=== PATIENT | female | born 1985 | race Two or more races ===

== ENCOUNTER 2025-03-05 02:54 | Inpatient (IN) | payer OTHER ==
[~2025-03-05] VITALS: Ht 160 cm; Wt 74.5 kg
[2025-03-05 04:00] LABS: PLATELET COUNT (AUTO) 361 K/uL (150-450); RED BLOOD CELL COUNT(AUTO) 4.71 MIL/uL (4.00-5.20); RED CELL DISTRIBUTION WIDTH 15.7 % (11.5-14.5); WHITE BLOOD COUNT (AUTO) 7.5 K/uL (4.5-11.0)
[2025-03-05 04:09] LABS: CALCIUM, TOTAL 9.1 mg/dL (8.8-10.5); CREATININE 0.58 mg/dL (0.60-1.30); GLOMERULAR FILTR. RATE CALC > 60 mL/min (>60); GLUCOSE,RANDOM 94 mg/dL (70-110); SODIUM SERUM 141 mmol/L (136-145); UREA NITROGEN, BLOOD 9 mg/dL (7-18)
[2025-03-05 04:13] LABS: ALCOHOL, BLOOD (SERUM) < 3 mg/dL (0-10)
[2025-03-05 04:16] LABS: ASPARTATE AMINOTRANSFERASE 18 U/L (15-37); TOTAL PROTEIN, SERUM 7.4 g/dL (6.4-8.2)
[2025-03-05] MEDS: SODIUM CHLORIDE 0.9% 1,000 ML IV ONE ×2 (05:23→08:31)
[2025-03-05] MEDS: ONDANSETRON HCL 4 MG/2 ML VIAL IVP ONE (05:24)
[2025-03-05] MEDS ORDERED: ONDANSETRON HCL 4 MG/2 ML VIAL IVP PRN (08:15)
[2025-03-05] MEDS ORDERED: MAGNESIUM HYDROXIDE SUSPENSION 30 ML UDCUP PO PRN (08:15)
[2025-03-05 09:00] VITALS: BP 130/84; PULSE 72; RESP 18; TEMP 97.3; O2SAT 100
[2025-03-05] MEDS: FAMOTIDINE 20 MG TABLET PO SCH (09:39)
[2025-03-05] MEDS: ACETAMINOPHEN 325 MG TABLET PO PRN (17:27)
[2025-03-05 20:11] VITALS: BP 111/71; PULSE 59; RESP 18; TEMP 97.5; O2SAT 99
[2025-03-06 04:26] LABS: APPEARANCE,URINE CLEAR (CLEAR); GLUCOSE, URINE (UA) NEGATIVE (NEGATIVE); LEUKOCYTE ESTERASE ,URINE NEGATIVE (NEGATIVE); NITRATE,URINE NEGATIVE (NEGATIVE); OCCULT BLOOD,URINE MODERATE (NEGATIVE); PH,URINE DRUG SCREEN 7.0 (5.0-8.0); SPECIFIC GRAVITIY, URINE 1.005 (1.003-1.030)
[2025-03-06 04:28] LABS: AMPHET/METH SCREEN,URINE NEGATIVE (NEGATIVE); BARBITURATE SCREEN, URINE NEGATIVE (NEGATIVE); CANNABINOID SCREEN,URINE NEGATIVE (NEGATIVE); COCAINE SCREEN,URINE NEGATIVE (NEGATIVE); METHADONE SCREEN, URINE NEGATIVE (NEGATIVE)
[2025-03-06 04:30] LABS: ALCOHOL, URINE DRUG SCREEN NEGATIVE (NEGATIVE); SQUAMOUS EPITHELIAL CELL,UR Few /LPF (None Seen)
[2025-03-06 08:42] VITALS: BP 104/73; PULSE 58; RESP 18; TEMP 98; O2SAT 97
[2025-03-06 20:00] VITALS: BP 106/75; PULSE 79; RESP 18; TEMP 98.1; O2SAT 98
[2025-03-07] MEDS: ZOLPIDEM TARTRATE 5 MG TABLET PO PRN (01:56)
[2025-03-07 03:33] VITALS: BP 104/69; PULSE 73; RESP 18; TEMP 97.3; O2SAT 99
[2025-03-07 15:28] VITALS: BP 95/59; PULSE 78; RESP 18; TEMP 97.7; O2SAT 96
== END 2025-03-07 20:00 | DRG 897 ==
LOC: EMS 02:54 → EDBEDREQ 07:55 → EDH 08:03 → 6N 08:52
PROVIDERS: ADMIT Internal Medicine; ATTEND Internal Medicine
DX: F11.13 Opioid abuse with withdrawal (principal); E87.3 Alkalosis; F15.10 Other stimulant abuse, uncomplicated
CPT/HCPCS: 80048; 80076; 80307; 81001; 85025; 96361; 96374; 99285; G0480; J2405; J7030; 36415-L1; 36415-TC